=== PATIENT | male | born 1965 | race Caucasian/White ===

== ENCOUNTER 2021-10-11 16:53 | Emergency (ER) | payer OTHER ==
[~2021-10-11 16:53] MED LIST: CELEBREX **OUT100 MG PO; CLARITIN10 MG PO; FLONASE ALLER15.8 ML; LIPITOR20 MG PO; LISINOPRIL-HCT1 EAC2 PO; NORVASC5 MG PO
[2021-10-11] MEDS ORDERED: PERCOCET 5-3251 EACH PO (22:46)
== END 2021-10-11 23:05 | disposition home or self-care (01) ==
LOC: FER 16:53
DX: M25.562 Pain in left knee (principal); I10 Essential (primary) hypertension; Z28.310 Unvaccinated for COVID-19; Z79.899 Other long term (current) drug therapy; X58.XXXA Exposure to other specified factors, initial encounter
CPT/HCPCS: 73560